=== PATIENT | male | born 1985 | race Caucasian/White ===

== ENCOUNTER 2016-12-18 20:10 | Emergency (ER) | payer SELFPAY ==
[~2016-12-18] VITALS: Ht 165.1 cm; Wt 90.7 kg
[2016-12-18 23:42] LABS: BASOPHIL % 0.4 % (0-2); PLATELET COUNT 246 x10^3mcL (130-400); RED CELL DISTRIBUTION WIDTH 13.3 % (11.5-14.5)
[2016-12-19 00:04] LABS: CALCIUM 8.9 mg/dL (8.5-10.1); CARBON DIOXIDE 29.8 mmol/L (21-32); CHLORIDE SERUM 100 mmol/L (98-107); GFR1 > 60 mL/min; GLUCOSE SERUM 95 mg/dL (74-106); POTASSIUM SERUM 3.7 mmol/L (3.5-5.1); SODIUM SERUM 139 mmol/L (136-145)
[2016-12-19 00:18] LABS: FREE THYROXINE INDEX 2.2 ug/dL (1.4-4.5)
[2016-12-19 01:43] VITALS: BP 124/73
[2016-12-19 08:38] LABS: T3 TOTAL 1.48 ng/mL
== END 2016-12-19 01:43 | disposition home or self-care (01) ==
LOC: ED 20:10
PROVIDERS: Emergency Medicine Emergency Medical Services
DX: F41.1 Generalized anxiety disorder (principal); I10 Essential (primary) hypertension
CPT/HCPCS: 36415; 84439